=== PATIENT | male | born 1960 | race Caucasian/White ===

== ENCOUNTER 2016-05-24 05:30 | Inpatient (IN) | payer BC ==
[~2016-05-24 05:30] MED LIST: BUPIVACAINE 0.25% (MDV) 20 ML in SODIUM CHLORIDE 0.9% FLUSH 20 ML IF PRN; BUPIVACAINE 0.25% (MDV) 24 ML, MORPHINE SULFATE 8 MG, EPINEPHRINE 0.3 MG in SODIUM CHLO... IF PRN; CEFAZOLIN SODIUM 2 GRAM PREMIX 100 ML IV PRN; CELECOXIB 200 MG CAPSULE PO ONE; CLONIDINE HCL 0.1 MG/24 HR (7 DAY PATCH) TD SCH; FAMOTIDINE 20 MG TABLET PO ONE; GABAPENTIN 600 MG TABLET PO ONE; ONDANSETRON 4 MG/2ML 2 ML VIAL IV ONE; OXYCODONE HCL 10 MG TAB.SR PO ONE; POLYMYXIN B SULFATE 500,000 UNITS, BACITRACIN 25,000 UNITS in SODIUM CHLORIDE 3 L IRRIG... IR PRN; TRAMADOL HCL 50 MG TABLET PO ONE; TRANEXAMIC ACID 1,000 MG in SODIUM CHLORIDE 0.9% 100 ML IV PRN
[2016-05-24] MEDS ORDERED: IV START KIT ONE (05:40)
[2016-05-24] MEDS ORDERED: LACTATED RINGERS 1,000 ML ONE ×2 (05:40→11:25)
[2016-05-24] MEDS ORDERED: ONDANSETRON 4 MG/2ML 2 ML VIAL ONE (05:42)
[2016-05-24] MEDS ORDERED: TRAMADOL HCL 50 MG TABLET ONE (05:42)
[2016-05-24] MEDS ORDERED: FAMOTIDINE 20 MG TABLET ONE (05:42)
[2016-05-24] MEDS ORDERED: OXYCODONE HCL 10 MG TAB.SR PO ONE (05:42)
[2016-05-24] MEDS ORDERED: GABAPENTIN 600 MG TABLET ONE (05:43)
[2016-05-24] MEDS ORDERED: CLONIDINE HCL 0.1 MG/24 HR (7 DAY PATCH) TD ONE (05:43)
[2016-05-24] MEDS ORDERED: CELECOXIB 200 MG CAPSULE ONE (05:43)
[2016-05-24] MEDS ORDERED: FENTANYL 100 MCG/2 ML VIAL ONE (07:16)
[2016-05-24] MEDS ORDERED: MIDAZOLAM HCL 1 MG/ML 2ML VIAL ONE (07:16)
[2016-05-24] MEDS ORDERED: MEPERIDINE 25 MG/ML SYRINGE IV PRN (08:10)
[2016-05-24] MEDS ORDERED: HYDRALAZINE HCL 20 MG/1 ML VIAL IV PRN (08:10)
[2016-05-24] MEDS ORDERED: NALOXONE HCL 0.4 MG/ML VIAL IV PRN (08:10)
[2016-05-24] MEDS ORDERED: PROMETHAZINE HCL 25 MG/ML VIAL IM PRN (08:10)
[2016-05-24] MEDS ORDERED: ATROPINE SULFATE 0.4 MG/1 ML VIAL IV PRN (08:10)
[2016-05-24] MEDS ORDERED: MORPHINE SULFATE 4 MG/ML SYRINGE IV PRN (08:10)
[2016-05-24] MEDS ORDERED: ONDANSETRON 4 MG/2ML 2 ML VIAL IV PRN ×2 (08:10→10:20)
[2016-05-24] MEDS ORDERED: BUPIVACAINE 0.75% SPINAL AMPUL 2 ML ONE (08:11)
[2016-05-24] MEDS ORDERED: SPINAL PROCEDURAL TRAY 1 EACH ONE (08:11)
[2016-05-24] MEDS ORDERED: LACTATED RINGERS 1,000 ML IV SCH (08:15)
--- NOTE | 2016-05-24 08:28 | HP ---
DATE OF CLINIC: 05/19/16 KELVIN LEYVA : 1960 PLANNED PROCEDURE: Right total hip arthroplasty DATE OF PROCEDURE: May 24, 2016 SURGEON: Dr. Jayson Tobias PCP: Dr. Jorge Luis Arroyo HISTORY OF PRESENT ILLNESS Kelvin Leyva is a 55 year old male. * Medication list reviewed with patient allergy list reviewed with patient. * Has not tried NSAIDS * Has not tried Physical Therapy * Has not tried Injections 55-year-old male well known to me for a left GINA over 18 months ago from which she has done well. He has known degenerative disease of his right hip. He was last seen for this 12/18/14. We discussed definitive management with arthroplasty in the past. He is at the point now where he feels that this is functionally becoming more limiting for him and he would like to proceed if possible. His pain is lateral with some radiation into the groin and thigh. It is non-radicular. It is worse with weightbearing and he does have startup symptoms. After discussion and review of treatment options, both operative and nonoperative, he has elected to proceed with surgery and presents today preoperatively. He does not have any significant comorbidities. CURRENT MEDICATION * *Supplement Miscellaneous 1 once a day instaflex, tumeric, ginko, 0 days, 0 refills * Multivitamins Capsule as directed 0 days, 0 refills PAST MEDICAL/SURGICAL HISTORY Reported: Medical: History of Arthritis and Fainting. Surgical / Procedural: Prior surgery diviated septum 1983, vasectomy 1991, replacement of a hip Left hip replacement done 07/08/[address] Tobias, and Tonsilectomy 1966. SOCIAL HISTORY Behavioral: Caffeine use and non-smoker never smoked. Smoking status: Never smoker. Alcohol: Alcohol 2-3 beers a week and occasional scotch and alcohol use. Work: Occupation Marketing/Sales. ALLERGIES * Gluten REVIEW OF SYSTEMS Systemic: No fever and no recent weight change. Head: No head symptoms. Cardiovascular: No cardiovascular symptoms. Pulmonary: No pulmonary symptoms. Gastrointestinal: No gastrointestinal symptoms. Psychological: No psychological symptoms. Skin: No skin lesions and no rash. PHYSICAL FINDINGS * Vitals taken 05/19/2016 09:11 am BP-Sitting R 142/87 mmHg 100 - 120/60 - 80 BP Cuff Size Regular Pulse Rate-Sitting 83 bpm 50 - 100 Respiration Rate 16 per min 18 - 26 Temp-Oral 99.2 F 96 - 101 Height 70.5 in 64 - 74 Weight 190 lbs 125 - 225 Body Mass Index 26.9 kg/m2 Body Surface Area 2.05 m2 Pain Level 2 Ears, Nose, Throat: * ENT: normal. Lungs: * Clear to auscultation. Cardiovascular: Heart Rate And Rhythm: * Normal. Abdomen: * Normal. Neurological: Motor: * Dominant Hand = Right Hand. Patient is a well-developed, well-nourished male in no acute distress, normal-appearing mood and affect. He ambulates with a slightly antalgic gait at startup. His pelvis is level. He has reasonably well maintained lumbar lordosis. Evaluation of the right hip shows mild tenderness laterally over the trochanter, NT in the groin, NT in the sciatic notch. ROM is 70 degrees of flexion, 25 degrees abduction, 10 degrees IR, 20 degrees ER, he lacks 5 degrees from neutral adduction and full extension. Thigh is soft and NT. No atrophy or asymmetry compared to the contralateral side. Cursory evaluation of the knee is normal. Calf is soft and NT. Distal light touch sensation and motor function are grossly intact and symmetric. Sitting SLR is negative. Evaluation of the left hip shows he has no focal periarticular tenderness. Motion is greater than 100 degrees of flexion, 20 degrees IR, 60 degrees ER, 40 degrees of abduction. He can abduct past the midline and extend fully. He has good leg control. Cursory evaluation of the knee is normal. Sitting SLR is negative. Neurovascular exam is intact distally and symmetric. TESTS Radiographs of the pelvis and right hip demonstrate marked degenerative changes with blunting of the superolateral femoral head and neck junction with osteophytic formation in this area as well as medially. He has a superolateral osteophyte. Bony cortices are well preserved. Contralateral press-fit arthroplasty with limited views appears to be in reasonable position and alignment. He does have lumbosacral degenerative changes with facet arthropathy. ASSESSMENT DJD, right hip, advanced. Over 18 months s/p left GINA, doing well. PREVIOUS TESTS * Test: CBC WITH DIFF Report Date: 05/12/2016 WBC 6.3 10*3/mL MCV 92.5 fL RBC 4.96 10*6/uL NEUTROPHILS 69.5 % MCH 31.7 pg High MCHC 34.2 g/dL RDW 12.4 % PLATELET COUNT 290 10*3/mL IMM NEUT % 0.3 % IMM NEUT # 0.0 10*3/mL MONOCYTES 7.1 % BASOPHIL 0.8 % EOSINOPHIL 0.0 % Low HCT 45.9 % HGB 15.7 g/L LYMPHOCYTE 22.3 % ANC 4.4 10*3/mL * Test: URINALYSIS WITH MICROSCOPIC Report Date: 05/12/2016 EPITHELIAL CELL 0 WBC NEG GLUCOSE TRACE BACTERIA FEW PH,URINE 6.0 SPEC. GRAVITY 1.030 KETONE NEGATIVE NITRITE NEGATIVE RBC 2-4 BLOOD 3+ BILIRUBIN NEGATIVE APPEARANCE CLEAR PROTEIN NEGATIVE COLOR YELLOW LEUK ESTERASE NEGATIVE UROBILINOGEN NORMAL * Test: PROTHROMBIN TIME Report Date: 05/12/2016 PROTIME 9.3 s INR 0.89 * Test: PARTIAL THROMBOPLASTIN TIME Report Date: 05/12/2016 APTT 22.7 s Low * Test: COMPREHENSIVE METABOLIC PANEL Report Date: 05/12/2016 ALT/SGPT 23 U/L ALBUMIN 4.2 g/dL ALB/GLOB RATIO 1.6 BUN 20 mg/dL BUN/CREAT RATIO 18 CALCIUM 9.3 mg/dL GLUCOSE 145 mg/dL High CREATININE 1.1 mg/dL SODIUM 138 meq/L POTASSIUM 4.4 meq/L CHLORIDE 104 meq/L CARBON DIOXIDE 27 meq/L ANION GAP 11 meq/L TOT PROTEIN 6.8 g/dL GLOBULIN 2.6 g/dL BILI,TOTAL 0.4 mg/dL AST/SGOT 14 U/L ALK PHOSPHATASE 73 U/L GFR 69 * Test: MRSA SCREEN Report Date: 05/13/2016 MRSA SCREEN NEGATIVE * Test: MSSA SCREEN Report Date: 05/13/2016 MSSA SCREEN POSITIVE FOR STAPHYLOCOCCUS AUREUS Abnormal THERAPY * Patient not eligible for fall risk assessment. PLAN * Unilateral primary osteoarthritis, right hip Physical Therapy: [facility] [phone] * OTHER CeleBREX 200 MG CAPS, 1 once a day, 30 days, 0 refills Mupirocin 2 % OINT, apply into each nostril two times a day (morning & night) for 5 days prior to surgery date. NEED TO START ON May 19, 2016, 5 days, 0 refills OxyCODONE HCl 5 MG TABS, 1or 2 tablets every 4 to 6 hours as needed-TO BE USED FOR AFTER SURGERY, 5 days, 0 refills TraMADol HCl 50 MG TABS, 1-2 tabs every 6 to 8 hours prn pain, 3 days, 0 refills * Total hip replacement -Right Discussed with patient in detail the limitations, expectations as well as risks and possible complications of surgery including, but not limited to wound problems or infection, neurovascular injury, continued hip pain or dysfunction, postop instability including the possibility of dislocation and/or postop leg length discrepancy, and the possibility of prosthetic wear or failure over time that may require additional operative or nonoperative treatment. Patient also realizes the perioperative risks including risks associated with anesthesia and would like to proceed. A full PAR conference was held, questions and concerns addressed and informed consent was obtained. Patient will be sent from my office for completion of the preoperative workup. Patient will use enteric coated aspirin postoperatively for DVT prophylaxis as per risk stratification protocol. Patient would like to perform their postop PT at [facility] with total hip arthroplasty protocol. CARE TEAM Jorge Luis Arroyo MD [facility]
--- NOTE | 2016-05-24 09:48 | PCMBPN ---
Brief Post Op Note: Date of Procedure: 05/24/16 Preoperative Diagnosis: DJD right hip Postoperative Diagnosis: 1. [Same] Procedure: right GINA Surgeon: Jayson Tobias MD Assist: Ochoa (ALEX) Anesthesia: spinal (Benjamin) Condition: stable to PAR Complications: none IV Fluids: 1700 mLs of LR Urine Output: 150 mLs Estimated Blood Loss: 200 mLs Tourniquet Time: [N/A] Specimens: [N/A] Implants: trilock Drains: [N/A]
[2016-05-24] MEDS ORDERED: HYDROXYZINE PAMOATE 25 MG CAPSULE PO PRN (10:20)
[2016-05-24] MEDS ORDERED: TEMAZEPAM 15 MG CAPSULE PO PRN (10:20)
[2016-05-24] MEDS ORDERED: CALCIUM CARBONATE 500 MG TAB.CHEW PO PRN (10:20)
[2016-05-24] MEDS ORDERED: HYDROMORPHONE HCL 0.5 MG/0.5 ML SYRINGE IV PRN (10:20)
--- NOTE | 2016-05-24 10:22 | RAD ---
Exam: Single view pelvis COMPARISON: 02/18/2016, 07/08/2014 INDICATION: Status post right total hip replacement. FINDINGS: Single Justo view of the pelvis was obtained and demonstrates postsurgical changes of bilateral hip arthroplasty. Left hip arthroplasty appear similar to the preoperative exam. No pericomponent fracture is identified. Alignment is normal. IMPRESSION: Expected postoperative appearance following right hip arthroplasty.
[2016-05-24 10:56] VITALS: BMI 26.4
[2016-05-24] MEDS ORDERED: PUMP TUBING ONE (11:25)
[2016-05-24] MEDS: KETOROLAC TROMETHAMINE 30 MG/ML 1 ML VIAL IV PRN ×2 (11:47→23:11)
[2016-05-24] MEDS: D5 1/2NS with 20 mEq KCL 1,000 ML IV SCH ×2 (11:47→20:28)
[2016-05-24] MEDS: CEFAZOLIN SODIUM 1 GRAM PREMIX 1 G in Premix (D5W) 50 ml 1 EACH IV SCH (16:13)
[2016-05-24] MEDS: TRAMADOL HCL 50 MG TABLET PO PRN ×2 (16:13→21:50)
[2016-05-24] MEDS: ACETAMINOPHEN 500 MG TABLET PO SCH ×2 (16:13→21:50)
[2016-05-24] MEDS: ASCORBIC ACID 500 MG TABLET PO SCH (21:50)
[2016-05-24] MEDS: DOCUSATE SODIUM 100 MG CAPSULE PO SCH (21:50)
[2016-05-24] MEDS: OXYCODONE HCL 5 MG TABLET PO PRN (23:11)
[2016-05-25] MEDS: CEFAZOLIN SODIUM 1 GRAM PREMIX 1 G in Premix (D5W) 50 ml 1 EACH IV SCH (00:12)
[2016-05-25] MEDS: D5 1/2NS with 20 mEq KCL 1,000 ML IV SCH ×2 (03:24→09:55)
[2016-05-25] MEDS: ACETAMINOPHEN 500 MG TABLET PO SCH ×2 (03:28→09:54)
[2016-05-25] MEDS ORDERED: REMOVE PATCH 1 EACH UNIT TD SCH (05:30)
[2016-05-25 06:57] LABS: HEMATOCRIT 37.2 % (32.0-52.0); HEMOGLOBIN 12.2 gm/l (14.0-18.0); MEAN CELL VOLUME 94.9 fl (80.0-94.0); MEAN CORPUSCULAR HEMOGLOBIN 31.1 pg (27.0-31.0); MEAN CORPUSCULAR HGB CONC 32.8 g/dl (33.0-37.0); RED CELL DISTRIBUTION WIDTH 12.8 % (11.5-14.5)
[2016-05-25 07:19] LABS: CALCIUM 7.9 mg/dL (8.6-10.3)
--- NOTE | 2016-05-25 07:36 | PDOC43 ---
- Subjective Findings: Pt seen this morning up and doing well. States he is doing much netter than after his last GINA. He was able to stand and walk to the door yesterday. Subjective: Reports Flatus, Reports Pain Tolerable, Denies Chest Pain, Denies Shortness of Breath, Denies Nausea, Denies Vomiting, Denies Fever - Objective Vital Signs Temperature 98.1 F 05/25/16 03:40 Pulse Rate 71 05/25/16 03:40 Respiratory Rate 20 05/25/16 03:40 Blood Pressure 113/66 05/25/16 03:40 O2 Saturation by Pulse Oximetry 99 05/25/16 03:40 Oxygen Delivery Method Room Air Oxygen Flow Rate 0 Laboratory 05/25/16 06:10 05/25/16 06:10 RBC 3.92 L MCV 94.9 H MCH 31.1 H MCHC 32.8 L Active Medication Orders Category Date Time Status Acetaminophen [Tylenol] Med 05/24/16 16:00 Active 1,000 mg PO Q6H Ascorbic Acid [Vitamin C] Med 05/24/16 21:00 Active 500 mg PO BID Aspirin (Enteric Coated) [Ecotrin] Med 05/25/16 09:00 Active 325 mg PO DAILY Bisacodyl [Dulcolax] Med 05/27/16 09:50 Active 10 mg UT DAILY PRN Calcium Carbonate [Tums] Med 05/24/16 10:20 Active 1,000 - 2,000 mg PO Q2H PRN D5 1/2NS with 20 mEq KCL [D51/2NS with 20 mEq KCL] 1, Med 05/24/16 10:20 Active 000 ml IV 125 mls/hr Docusate Sodium [Colace] Med 05/24/16 21:00 Active 100 mg PO BID Hydromorphone HCl [Dilaudid] Med 05/24/16 10:20 Active 0.5 mg IV Q1H PRN Hydroxyzine Pamoate [Vistaril] Med 05/24/16 10:20 Active 25 - 50 mg PO Q4H PRN Ketorolac Tromethamine [Toradol] Med 05/24/16 10:20 Active 30 mg IV Q6H PRN Magnesium Hydroxide [Milk of Magnesia] Med 05/25/16 09:50 Active 30 ml PO DAILY PRN Multivitamins [One-A-Day] Med 05/25/16 09:00 Active 1 tab PO DAILY Ondansetron 4 mg/2ml Vial [Zofran] Med 05/24/16 10:20 Active 4 - 6 mg IV Q6H PRN Oxycodone HCl [Roxicodone] Med 05/24/16 10:20 Active 5 - 10 mg PO Q4H PRN Remove Patch Med 05/25/16 09:50 Once 1 each TD X1 ONE Sodium Chloride 0.9% Flush [Normal Saline 10ml Flush] Med 05/24/16 10:20 Active 10 - 50 ml IV PRN PRN Sodium Chloride 0.9% Flush [Normal Saline 10ml Flush] Med 05/24/16 17:00 Active 10 ml IV Q8HR Temazepam [Restoril] Med 05/24/16 10:20 Active 15 mg PO BEDTIME PRN Tramadol HCl [Ultram] Med 05/24/16 16:30 Active 50 mg PO Q6H PRN Intake and Output 05/23/16 05/24/16 05/25/16 23:59 23:59 23:59 Intake Total 2588 2084 Output Total 1825 1650 Balance [phone] General: Afebrile HEENT: Atraumatic Lungs: Normal Air Movement Abdomen: Soft, Non-Distended Skin: Normal Color Neurological: Alert, Oriented x 4 Psych/Mental Status: Normal Affect, Normal Mood - Right Lower Extremity Motor: Extensor Hallucis Longus: 5/5, Tibialis Anterior: 5/5, Gastrocnemius: 5/5 , Peroneals: 5/5, Quadriceps: 3/5 Gross Sensation to Light Touch: Present: Deep Peroneal Nerve Motion: Calf soft NT Mod assist with SLR Gentle Rom of hip and knee without pain - Problems (1) Status post right hip replacement Status: Acute Assessment/Plan: Pod#1 1. Physical Therapy:Mobilize with PT/OT, encouraged bed exercise 2. Pain Control:Per protocol and orders 3. DVT Prophylaxis: ASA, foot pumps and mobility 4. Disposition:Doing well at his point 5. Medical Issues:Plan for possible D/C this afternoon if meets criteria
[2016-05-25 08:03] VITALS: BP 106/60
[2016-05-25] MEDS: ASCORBIC ACID 500 MG TABLET PO SCH (08:36)
[2016-05-25] MEDS: DOCUSATE SODIUM 100 MG CAPSULE PO SCH (08:36)
[2016-05-25] MEDS ORDERED: CELECOXIB 200 MG CAPSULE PO SCH (09:00)
[2016-05-25] MEDS ORDERED: ASPIRIN (ENTERIC COATED) 325 MG TABLET.EC PO SCH (09:00)
[2016-05-25] MEDS ORDERED: MULTIVITAMINS 1 TAB TABLET PO SCH (09:00)
[2016-05-25] MEDS ORDERED: MAGNESIUM HYDROXIDE 30 ML UDCUP PO PRN (09:50)
[2016-05-25] MEDS ORDERED: REMOVE PATCH 1 EACH UNIT TD ONE (09:50)
[2016-05-25] MEDS: OXYCODONE HCL 5 MG TABLET PO PRN ×2 (09:53→15:10)
--- NOTE | 2016-05-27 09:20 | OP ---
KELVIN FIELDS [id number] : 1960 DATE OF SURGERY: May 24, 2016 PREOPERATIVE DIAGNOSIS: Degenerative joint disease right hip POSTOPERATIVE DIAGNOSIS: Same PROCEDURE: Right Total Hip Arthroplasty COMPONENTS: Tri-Lock size 6 standard offset press-fit femoral stem with a +1.5 40mm delta ceramic femoral head, 58mm Volborg 100 press-fit acetabular shell with a neutral cross-linked polyethylene liner. SURGEON: Jatinder ASSIST: Ochoa REDDY) ANESTHESIA: Spinal per Benjamin EBL: 200 mL URINE OUTPUT: 150 cc IVF REPLACEMENT: Per anesthesia, 1.7 liters crystalloid DRAINS: None COMPLICATIONS: None HISTORY: Briefly, patient is a 55-year-old male with clinical and radiographic evidence most consistent with degenerative joint disease of their right hip. They have failed traditional nonoperative measures and at this point desire elective surgical management. For additional details, refer to previously dictated Preoperative History and Physical Exam. A full PAR conference was held, questions and concerns were addressed, and informed consent was obtained. FINDINGS: Significant hypertrophic disease with femoral head deformity, large skirt osteophyte around the femoral neck, good bone quality. He had a very large posterior and inferior acetabular osteophyte as well as a smaller anterior osteophyte. Significant medial osteophyte as well. PROCEDURE: The patient was taken to the operating room and after previously described anesthesia was placed in the lateral decubitus position on the operating room table and held with the peg board positioner. Gonzales prominences were well padded and an axillary roll was placed. The right hip girdle and lower extremity were then prepped and draped out in the usual sterile fashion. Preoperative antibiotics were given empirically. Intraoperative DVT prophylaxis consisted of bilateral mechanical foot pumps. Personal filtration suits were used as was a closed room environment. An oblique ten centimeter incision was made using the minimally invasive guide posterior and extending slightly proximal to the greater trochanter. We dissected through subcutaneous tissue down to the gluteus fascia. Electrocautery was used at this point and throughout the duration of the case to establish and maintain hemostasis. The gluteus fascia was incised in line with the incision and the muscle fibers split to expose the underlying bursal tissue. Tranexamic acid was infiltrated over 10 minutes prior to incision, 1 gram dose per protocol. A similar 2nd dose was given at initiation of closure. A deep self retaining field retractor was placed. The short external rotators were identified, the piriformis was tagged and reflected with the underlying capsule which was reflected in a U fashion off the femoral neck and tagged as well for later repair. Release of the capsule allowed for dislocation of the hip and the femoral head was brought up into the operative field. A femoral neck cut was made proximal to the lesser trochanter as per our preoperative templating. We then translated the femur anteriorly exposing the acetabulum. The remaining labrum was excised circumferentially. Osteophytes were debrided under direct visualization with an osteotome as well as a rongeur. We reamed to the true acetabular floor and then incrementally up to a 57 as per our preoperative plan at which point we noted circumferential bleeding cancellous bone. This was trialed at approximately 45 degrees of abduction and 20 degrees of anteversion with good fit and stability. We then impacted the true acetabular component which was seated completely. An apical hole cover was placed and we impacted the neutral crosslinked polyethylene liner. Attention was then directed back to the femur. The remaining soft tissue was cleared from the piriformis fossa and we use a rongeur and box osteotome to enter the proximal femoral canal followed by the canal seeker and then the broach only system up to a size 6 matching the patient's [place] anteversion with good proximal fill and rotational stability. This was trialed with a standard offset +1.5. The hip was then reduced with good stability to 80 degrees of internal rotation in 90 degrees of flexion and full extension with no instability on external rotation. There was good soft tissue balance and approximately equal leg lengths. Satisfied, trial components were removed and we impacted the true femoral stem. The trunnion was then cleaned and dried and the femoral head was impacted. The hip was then reduced with stability as previously discussed. Satisfied, we turned our attention to closure. The wound was copiously irrigated with antibiotic pulsatile lavage. We then advanced the capsule and piriformis to the gluteus medius insertion. The gluteus fascia was closed with a running number two PDO StratoFix suture. 1st periarticular injection was given at this point per protocol into the capsule, synovium, gluteus and external rotators. The subcutaneous tissue was closed with interrupted 2-0 and 3-0 Vicryl and the skin was closed with a running 4-0 Monocryl stitch with Indermil and Steri-Strips. The 2nd periarticular injection was done at this point per protocol into the subcutaneous tissue superiorly and anteriorly to the incision. A sterile hip dressing was then applied, the patient was returned to the supine position, transferred to their hospital bed, and sent to the postoperative recovery room in stable condition. They tolerated the procedure well. Sponge, instrument, and needle count were correct. ALLISON/mrw CC: Jorge Luis Arroyo MD [facility]
[2016-05-27] MEDS ORDERED: BISACODYL 10 MG SUP PR PRN (09:50)
--- NOTE | 2016-05-27 15:45 | DS ---
Saurav LEYVA [id number] : 1960 DATE OF ADMISSION: May 24, 2016 DATE OF DISCHARGE: May 25, 2016 DISCHARGE DIAGNOSES: Right hip osteoarthritis. HOSPITAL PROCEDURES: Right hip arthroplasty. SURGEON: Jayson Tobias M.D. BRIEF HISTORY: Patient is a 55-year-old male with clinical and radiographic evidence of advanced DJD of their right hip. For the full history please see the chart note. BRIEF HOSPITAL COURSE: Patient was admitted on May 24, 2016 Dr. Jayson Tobias performed a right total hip arthroplasty. Patient was moved to the recovery room in stable condition. They were given 4 doses of antibiotic for empiric coverage. DVT prophylaxis consisted of enteric coated aspirin 325 mg per day, FAHAD hose and AV foot pumps. PT was instituted postop day, 0 with right total hip arthroplasty protocol, weightbearing as tolerated. Their incision site remained benign, their vital signs remained stable and they remained neurally and vascularly intact through the duration of the stay. They were discharged home postop day 1, to continue outpatient PT at [facility] with right total hip arthroplasty protocol, weightbearing as tolerated keeping total hip precautions in mind. DISCHARGE INSTRUCTIONS: 1. Keep the wound site clean and dry, change dressing daily or as needed. 2. Continue the use of FAHAD hose bilaterally. 3. Ice pack over the wound site prn. 4. Continue total hip precautions. 5. Outpatient PT at [facility] with right total hip arthroplasty protocol, weightbearing as tolerated. MEDICATIONS: 1. Patient is to resume normal preop medications. 2. Anti-coagulation will be with enteric-coated aspirin 325 mg. 3. Pain management will be with Oxycodone, 5mg 1-2 every 4 hours prn for breakthrough pain, and Tramadol, 50mg every 6 hours prn pain as well as Celebrex 200 mg one per day. 4. Patient was also advised on utilization of a multi-vitamin with mineral daily as well as Vitamin C, 500mg, daily for 1 month. 5. Patient encouraged to take an iron supplement in the form of ferrous sulfate, 325mg daily for 4 weeks. 6. Colace, 100mg, b.i.d. until regular bowel movement. FOLLOW-UP: Please return to the clinic as scheduled for your first scheduled postop check. Prior to that point in time please call with any questions or concerns. Job [id number] CC: Nancy Kang Dina, M.D.
== END 2016-05-25 15:40 | disposition home or self-care (01) | DRG 470 ==
LOC: OR 05:30 → MS 11:45
PROVIDERS: ADMIT Orthopaedic Surgery; ATTEND Orthopaedic Surgery
PROC: 0SR904A Replacement of Right Hip Joint with Ceramic on Polyethylene Synthetic Substitute, Uncemented, Open Approach (ICD-10-PCS; principal; 2016-05-24)
DX: M16.11 Unilateral primary osteoarthritis, right hip (principal); M25.751 Osteophyte, right hip; Z96.642 Presence of left artificial hip joint; M40.46 Postural lordosis, lumbar region; Z22.321 Carrier or suspected carrier of Methicillin susceptible Staphylococcus aureus